=== PATIENT | male | born 1975 | race African-American/Black ===

== ENCOUNTER 2017-01-01 07:40 | Emergency (ER) | payer MEDICAID ==
[~2017-01-01] VITALS: Ht 182.9 cm; Wt 91.0 kg
[2017-01-01] MEDS ORDERED: SODIUM CHLORIDE 0.9% 1,000 ML IV ONE (08:05)
[2017-01-01 08:47] LABS: HEMATOCRIT. 29.6 % (42.0-52.0); MEAN CORPUSCULAR HEMOGLOBIN 29.4 pg (28.0-32.0); MEAN CORPUSCULAR VOLUME 87.2 fL (80.0-94.0); MEAN PLATELET VOLUME 9.4 fl (7.4-10.4); PLATELET 278 x1000/uL (130-400); RED BLOOD CELL COUNT 3.39 mill/uL (4.7-6.1); RED CELL DISTRIBUTION WIDTH 12.8 % (11.6-14.6)
[2017-01-01 08:56] LABS: CARBON DIOXIDE 23 mEq/L (21-32); CHLORIDE 97 mEq/L (98-107)
[2017-01-01 09:22] LABS: PLATELET ESTIMATE NORMAL
[2017-01-01 10:16] LABS: CLARITY URINE CLEAR (CLEAR); COLOR URINE YELLOW (YELLOW); KETONES URINE 3+ (NEGATIVE); LEUKOCYTE ESTERASE URINE NEGATIVE (NEGATIVE); NITRITE URINE NEGATIVE (NEGATIVE); OCCULT BLOOD URINE NEGATIVE (NEGATIVE); PH URINE 5.5 (4.5-8.0); PROTEIN URINE NEGATIVE (NEGATIVE); SPECIFIC GRAVITY URINE 1.043 (1.005-1.030); UROBILINOGEN URINE 0.2 E.U./dL (0.2-1.0)
[2017-01-01 11:33] VITALS: BP 141/88
== END 2017-01-01 11:54 | disposition home or self-care (01) ==
LOC: ER 08:00
DX: E11.65 Type 2 diabetes mellitus with hyperglycemia (principal); I10 Essential (primary) hypertension; Z79.4 Long term (current) use of insulin
CPT/HCPCS: 36415; 80053; 81001; 82962; 85025; 96360; 99284; J7030

== ENCOUNTER 2018-09-28 15:41 | Emergency (ER) | payer MEDICAID | END 2018-09-28 17:23 | disposition left against medical advice (07) | LOC: ER 15:41 | DX: Z53.21 Procedure and treatment not carried out due to patient leaving prior to being seen by health care provider (principal) ==

== ENCOUNTER 2022-05-05 08:38 | Inpatient (IN) | payer MEDICAID ==
[~2022-05-05] VITALS: Ht 182.9 cm; Wt 84.0 kg
[2022-05-05] MEDS ORDERED: LORAZEPAM 2MG/ML CPJ IM STA (09:30)
[2022-05-05] MEDS ORDERED: PIPERACILLIN/TAZ 3.375G PREMIX 50 ML IV ONE (09:30)
[2022-05-05] MEDS ORDERED: OLANZAPINE 10 MG/VIAL IM ONE (09:30)
[2022-05-05] MEDS ORDERED: VANCOMYCIN 1G PREMIX 200 ML IV ONE (09:30)
[2022-05-05 10:53] LABS: CLARITY URINE CLEAR (CLEAR); COLOR URINE YELLOW (YELLOW); KETONES URINE 2+ (NEGATIVE); LEUKOCYTE ESTERASE URINE NEGATIVE (NEGATIVE); NITRITE URINE NEGATIVE (NEGATIVE); OCCULT BLOOD URINE 1+ (NEGATIVE); PH URINE 5.5 (4.5-8.0); PROTEIN URINE TRACE (NEGATIVE); SPECIFIC GRAVITY URINE 1.039 (1.005-1.030); UROBILINOGEN URINE 0.2 E.U./dL (0.2-1.0)
[2022-05-05 11:07] LABS: BASOPHILS % 0.6 % (0.0-2.0); EOSINOPHILS % 3.2 % (0.0-5.0); HEMATOCRIT. 47.7 % (42.0-52.0); HEMOGLOBIN. 16.5 g/dL (14.0-18.0); LYMPHOCYTES % 31.2 % (20.0-50.0); MEAN CORPUSCULAR HEMOGLOBIN 28.7 pg (28.0-32.0); MEAN CORPUSCULAR VOLUME 82.9 fL (80.0-94.0); MEAN PLATELET VOLUME 8.7 fl (7.4-10.4); MONOCYTES % 8.5 % (2.0-8.0); NEUTROPHILS % 56.5 % (40.0-76.0); PLATELET 205 x1000/uL (130-400); RED BLOOD CELL COUNT 5.75 mill/uL (4.7-6.1); RED CELL DISTRIBUTION WIDTH 14.8 % (11.6-14.6)
[2022-05-05 11:41] LABS: CHLORIDE 98 mEq/L (98-107)
[2022-05-05] MEDS ORDERED: SODIUM CHLORIDE 0.9% 1,000 ML IV ONE (12:30)
[2022-05-05] MEDS ORDERED: IPRATROPIUM/ALBUTEROL 0.5-3(2.5)MG/3ML NEB HHN PRN (13:00)
[2022-05-05] MEDS ORDERED: ACETAMINOPHEN 325MG TABLET PO PRN (13:00)
[2022-05-05] MEDS ORDERED: INSULIN LISPRO 100 UNITS/ML SUBCUT NR (13:00)
[2022-05-05] MEDS ORDERED: DIPHENHYDRAMINE 50MG/ML VIAL IV PRN (13:00)
[2022-05-05] MEDS ORDERED: ONDANSETRON HCL 4MG/2ML INJ IV PRN (13:00)
[2022-05-05] MEDS ORDERED: MORPHINE SULFATE 2 MG/ML CPJ (NOT FOR IM USE) IV PRN (13:00)
[2022-05-05] MEDS ORDERED: PIPERACILLIN/TAZ 3.375G PREMIX 50 ML IV NR (13:15)
[2022-05-05] MEDS ORDERED: VANCOMYCIN 1G PREMIX 200 ML IV SCH ×2 (14:00→18:00)
[2022-05-05] MEDS: CLONIDINE 0.1MG TABLET PO PRN (14:11)
[2022-05-05 15:53] VITALS: BP 147/96
[2022-05-05 15:54] VITALS: BP 147/96
[2022-05-05] MEDS ORDERED: HALOPERIDOL LACTATE 5MG/ML VIAL IM PRN (16:15)
[2022-05-05] MEDS ORDERED: NALOXONE HCL 0.4MG/ML VIAL IV PRN (16:30)
[2022-05-05 18:00] VITALS: BP 144/86
[2022-05-05] MEDS: BLOOD SUGAR DIAGNOSTIC STRIP TEST SCH ×2 (18:23→21:18)
[2022-05-05] MEDS ORDERED: DEXTROSE 50% WATER 50ML SYRINGE IV PRN (18:30)
[2022-05-05] MEDS: INSULIN LISPRO 100 UNITS/ML SUBCUT SCH ×2 (18:39→21:24)
[2022-05-05 20:00] VITALS: BP 130/94
[2022-05-05] MEDS: VANCOMYCIN 1G PREMIX 200 ML IV SCH (21:24)
[2022-05-05] MEDS: PIPERACILLIN/TAZOBACTAM 3.375 G in DEXTROSE 5% WATER 50 ML IV SCH (21:24)
[2022-05-05 21:32] LABS: PROTHROMBIN TIME 10.7 sec (9.6-11.0)
[2022-05-05] MEDS ORDERED: PIPERACILLIN/TAZOBACTAM 3.375 G in DEXTROSE 5% WATER 50 ML IV SCH (22:00)
[2022-05-06] VITALS: BP 140/98
[2022-05-06 03:28] LABS: BASOPHILS % 0.8 % (0.0-2.0); EOSINOPHILS % 4.5 % (0.0-5.0); HEMATOCRIT. 48.6 % (42.0-52.0); HEMOGLOBIN. 16.7 g/dL (14.0-18.0); LYMPHOCYTES % 35.4 % (20.0-50.0); MEAN CORPUSCULAR HEMOGLOBIN 28.3 pg (28.0-32.0); MEAN CORPUSCULAR VOLUME 82.7 fL (80.0-94.0); MEAN PLATELET VOLUME 8.5 fl (7.4-10.4); MONOCYTES % 10.7 % (2.0-8.0); NEUTROPHILS % 48.6 % (40.0-76.0); PLATELET 220 x1000/uL (130-400); RED BLOOD CELL COUNT 5.88 mill/uL (4.7-6.1); RED CELL DISTRIBUTION WIDTH 14.9 % (11.6-14.6)
[2022-05-06 04:00] VITALS: BP 112/80
[2022-05-06 04:20] LABS: CHLORIDE 107 mEq/L (98-107)
[2022-05-06] MEDS: PIPERACILLIN/TAZOBACTAM 3.375 G in DEXTROSE 5% WATER 50 ML IV SCH ×3 (04:41→22:46)
[2022-05-06] MEDS: VANCOMYCIN 1G PREMIX 200 ML IV SCH ×3 (05:12→21:05)
[2022-05-06] MEDS: BLOOD SUGAR DIAGNOSTIC STRIP TEST SCH ×4 (05:40→21:02)
[2022-05-06] MEDS: INSULIN LISPRO 100 UNITS/ML SUBCUT SCH ×4 (06:22→21:54)
[2022-05-06 08:00] VITALS: BP 138/97
[2022-05-06 16:00] VITALS: BP_SYST 148; BP_SYST 152; BP_DIAS 109; BP_DIAS 82
[2022-05-06] MEDS: CLONIDINE 0.1MG TABLET PO PRN (18:27)
[2022-05-06 20:00] VITALS: BP 146/103
[2022-05-06] MEDS ORDERED: INSULIN LISPRO 100 UNITS/ML SUBCUT NR (21:45)
[2022-05-07] VITALS: BP 110/60
[2022-05-07 04:00] VITALS: BP 117/82
[2022-05-07] MEDS: PIPERACILLIN/TAZOBACTAM 3.375 G in DEXTROSE 5% WATER 50 ML IV SCH ×3 (05:24→22:00)
[2022-05-07] MEDS: BLOOD SUGAR DIAGNOSTIC STRIP TEST SCH ×4 (05:53→21:00)
[2022-05-07] MEDS: VANCOMYCIN 1G PREMIX 200 ML IV SCH ×3 (06:10→22:53)
[2022-05-07] MEDS: INSULIN LISPRO 100 UNITS/ML SUBCUT SCH ×4 (06:11→21:00)
[2022-05-07 06:28] LABS: BASOPHILS % 0.8 % (0.0-2.0); EOSINOPHILS % 5.1 % (0.0-5.0); HEMATOCRIT. 48.1 % (42.0-52.0); HEMOGLOBIN. 16.5 g/dL (14.0-18.0); LYMPHOCYTES % 30.7 % (20.0-50.0); MEAN CORPUSCULAR HEMOGLOBIN 28.7 pg (28.0-32.0); MEAN CORPUSCULAR VOLUME 83.8 fL (80.0-94.0); MEAN PLATELET VOLUME 8.7 fl (7.4-10.4); MONOCYTES % 10.6 % (2.0-8.0); NEUTROPHILS % 52.8 % (40.0-76.0); PLATELET 222 x1000/uL (130-400); RED BLOOD CELL COUNT 5.74 mill/uL (4.7-6.1); RED CELL DISTRIBUTION WIDTH 14.6 % (11.6-14.6)
[2022-05-07 06:38] LABS: CHLORIDE 105 mEq/L (98-107)
[2022-05-07 08:00] VITALS: BP 132/82
[2022-05-07] MEDS ORDERED: INSULIN LISPRO 100 UNITS/ML SUBCUT NR (09:00)
[2022-05-07] MEDS: SODIUM CHLORIDE 0.9% 1,000 ML IV SCH ×2 (11:35→21:11)
[2022-05-07 12:00] VITALS: BP 147/105
[2022-05-07] MEDS: CLONIDINE 0.1MG TABLET PO PRN (12:42)
[2022-05-07 16:00] VITALS: BP 150/92
[2022-05-07] MEDS ORDERED: BUPIVACAINE HCL/PF 0.5% (5MG/ML) 10ML ONE (16:19)
[2022-05-07] MEDS ORDERED: LIDOCAINE HCL 1% 10 MG/ML 10ML VIAL ONE (16:19)
[2022-05-07] MEDS ORDERED: POLYMYXIN B SULFATE 500000 UNITS/VIAL ONE ×2 (16:19→18:07)
[2022-05-07] MEDS ORDERED: LIDOCAINE HCL 1% 20ML VIAL (Pyxis) INJ ONE (17:10)
[2022-05-07] MEDS ORDERED: PROPOFOL 200MG/20ML VIAL IV ONE (17:10)
[2022-05-07] MEDS ORDERED: FENTANYL CITRATE/PF 50MCG/ML 2ML VIAL ONE (17:11)
[2022-05-07] MEDS ORDERED: MIDAZOLAM HCL 2 MG/2 ML VIAL ONE (17:11)
[2022-05-07] MEDS ORDERED: HYDROMORPHONE HCL/PF 2MG/ML CPJ IV PRN ×2 (18:15)
[2022-05-07] MEDS ORDERED: LABETALOL 5MG/ML SYR 20 MG/4 ML SYRINGE IV PRN ×2 (18:15)
[2022-05-07] MEDS ORDERED: ONDANSETRON HCL 4MG/2ML INJ IV PRN ×2 (18:15)
[2022-05-07] MEDS ORDERED: MEPERIDINE HCL/PF 25MG/ML CPJ IV PRN ×2 (18:15)
[2022-05-08] VITALS (7 sets, daily range): BP systolic 140–170; BP diastolic 98–113
[2022-05-08] MEDS: PIPERACILLIN/TAZOBACTAM 3.375 G in DEXTROSE 5% WATER 50 ML IV SCH ×3 (05:11→21:12)
[2022-05-08] MEDS: BLOOD SUGAR DIAGNOSTIC STRIP TEST SCH ×4 (05:47→21:11)
[2022-05-08] MEDS: VANCOMYCIN 1,000 MG in DEXT 5% WATER 250 ML IV SCH ×3 (05:47→21:21)
[2022-05-08] MEDS: INSULIN LISPRO 100 UNITS/ML SUBCUT SCH ×4 (05:48→21:11)
[2022-05-08] MEDS: CLONIDINE 0.1MG TABLET PO PRN ×2 (08:10→12:14)
[2022-05-08] MEDS: RISPERIDONE 1MG TABLET PO SCH ×2 (12:15→21:12)
[2022-05-08] MEDS: AMLODIPINE 2.5MG TABLET PO SCH ×2 (14:40→21:12)
[2022-05-08 21:42] LABS: BASOPHILS % 0.3 % (0.0-2.0); EOSINOPHILS % 2.3 % (0.0-5.0); HEMATOCRIT. 42.4 % (42.0-52.0); HEMOGLOBIN. 14.6 g/dL (14.0-18.0); LYMPHOCYTES % 18.8 % (20.0-50.0); MEAN CORPUSCULAR HEMOGLOBIN 28.4 pg (28.0-32.0); MEAN CORPUSCULAR VOLUME 82.8 fL (80.0-94.0); MEAN PLATELET VOLUME 9.1 fl (7.4-10.4); MONOCYTES % 12.9 % (2.0-8.0); NEUTROPHILS % 65.7 % (40.0-76.0); PLATELET 200 x1000/uL (130-400); RED BLOOD CELL COUNT 5.12 mill/uL (4.7-6.1); RED CELL DISTRIBUTION WIDTH 14.4 % (11.6-14.6)
[2022-05-08 22:40] LABS: CHLORIDE 99 mEq/L (98-107)
[2022-05-09] VITALS: BP 137/84
[2022-05-09 04:00] VITALS: BP 128/87
[2022-05-09] MEDS: VANCOMYCIN 1,000 MG in DEXT 5% WATER 250 ML IV SCH ×2 (05:24→13:12)
[2022-05-09] MEDS: BLOOD SUGAR DIAGNOSTIC STRIP TEST SCH ×4 (05:55→20:47)
[2022-05-09] MEDS: PIPERACILLIN/TAZOBACTAM 3.375 G in DEXTROSE 5% WATER 50 ML IV SCH ×2 (05:56→15:03)
[2022-05-09] MEDS: INSULIN LISPRO 100 UNITS/ML SUBCUT SCH ×4 (05:57→20:47)
[2022-05-09 08:00] VITALS: BP 130/87
[2022-05-09] MEDS: RISPERIDONE 1MG TABLET PO SCH ×2 (09:15→20:45)
[2022-05-09] MEDS: AMLODIPINE 2.5MG TABLET PO SCH ×2 (09:15→20:46)
[2022-05-09 12:00] VITALS: BP 129/82
[2022-05-09 16:00] VITALS: BP 144/90
[2022-05-09 20:00] VITALS: BP 113/85
[2022-05-09] MEDS: AMOXICILLIN/POTASSIUM CLAVULANATE 875/125MG TAB PO SCH (20:46)
[2022-05-09] MEDS ORDERED: INSULIN GLARGINE 100 UNITS/ML SUBCUT SCH (22:00)
[2022-05-10 00:01] VITALS: BP 141/93
[2022-05-10 04:00] VITALS: BP 137/65
[2022-05-10] MEDS: BLOOD SUGAR DIAGNOSTIC STRIP TEST SCH ×4 (06:03→20:51)
[2022-05-10] MEDS: INSULIN LISPRO 100 UNITS/ML SUBCUT SCH ×4 (06:04→20:56)
[2022-05-10 08:00] VITALS: BP 148/88
[2022-05-10] MEDS: AMOXICILLIN/POTASSIUM CLAVULANATE 875/125MG TAB PO SCH ×2 (08:57→20:51)
[2022-05-10] MEDS: RISPERIDONE 1MG TABLET PO SCH ×2 (08:57→20:51)
[2022-05-10] MEDS: AMLODIPINE 2.5MG TABLET PO SCH ×2 (08:58→20:51)
[2022-05-10 12:00] VITALS: BP 149/90
[2022-05-10] MEDS: INSULIN GLARGINE 100 UNITS/ML SUBCUT SCH ×2 (12:50→20:57)
[2022-05-10] MEDS: ENOXAPARIN 40MG/0.4ML SYR SUBCUT SCH (12:52)
[2022-05-10 16:00] VITALS: BP 187/76
[2022-05-10 20:00] VITALS: BP 146/94
[2022-05-11] VITALS: BP 140/91
[2022-05-11 04:00] VITALS: BP 137/88
[2022-05-11] MEDS: BLOOD SUGAR DIAGNOSTIC STRIP TEST SCH ×4 (06:17→21:00)
[2022-05-11] MEDS: INSULIN LISPRO 100 UNITS/ML SUBCUT SCH ×4 (06:27→21:20)
[2022-05-11 08:00] VITALS: BP 123/83
[2022-05-11] MEDS: RISPERIDONE 1MG TABLET PO SCH ×2 (09:44→21:18)
[2022-05-11] MEDS: AMOXICILLIN/POTASSIUM CLAVULANATE 875/125MG TAB PO SCH ×2 (09:44→21:17)
[2022-05-11] MEDS: AMLODIPINE 2.5MG TABLET PO SCH ×2 (09:44→21:18)
[2022-05-11] MEDS: INSULIN GLARGINE 100 UNITS/ML SUBCUT SCH ×2 (09:46→21:20)
[2022-05-11 12:00] VITALS: BP_SYST 123; BP_SYST 153; BP_DIAS 100; BP_DIAS 83
[2022-05-11] MEDS: ENOXAPARIN 40MG/0.4ML SYR SUBCUT SCH (12:26)
[2022-05-11 16:00] VITALS: BP 158/101
[2022-05-11 20:00] VITALS: BP 131/92
[2022-05-12] VITALS: BP_SYST 142; BP_SYST 155; BP_DIAS 96; BP_DIAS 99
[2022-05-12 04:00] VITALS: BP 142/99
[2022-05-12] MEDS: BLOOD SUGAR DIAGNOSTIC STRIP TEST SCH ×4 (06:02→21:04)
[2022-05-12] MEDS: INSULIN LISPRO 100 UNITS/ML SUBCUT SCH ×4 (06:13→21:06)
[2022-05-12 07:20] LABS: HEMATOCRIT 41.8 % (42.0-52.0); HEMOGLOBIN 14.1 g/dL (14.0-18.0); MEAN CORPUSCULAR HEMOGLOBIN 28.1 pg (28.0-32.0); MEAN CORPUSCULAR VOLUME 83.1 fL (80.0-94.0); PLATELET 247 x1000/uL (130-400); RED BLOOD CELL COUNT 5.03 mill/uL (4.7-6.1); RED CELL DISTRIBUTION WIDTH 14.3 % (11.6-14.6)
[2022-05-12 07:59] VITALS: BP 131/90
[2022-05-12] MEDS: AMLODIPINE 2.5MG TABLET PO SCH ×2 (09:10→21:00)
[2022-05-12] MEDS: RISPERIDONE 1MG TABLET PO SCH ×2 (09:11→21:04)
[2022-05-12] MEDS: AMOXICILLIN/POTASSIUM CLAVULANATE 875/125MG TAB PO SCH ×2 (09:11→21:04)
[2022-05-12] MEDS: INSULIN GLARGINE 100 UNITS/ML SUBCUT SCH ×2 (09:12→21:05)
[2022-05-12 11:40] LABS: CHLORIDE 103 mEq/L (98-107)
[2022-05-12 12:00] VITALS: BP 126/88
[2022-05-12] MEDS: ENOXAPARIN 40MG/0.4ML SYR SUBCUT SCH (13:03)
[2022-05-12] MEDS ORDERED: SERTRALINE HCL 50MG TABLET PO SCH (13:30)
[2022-05-12] MEDS ORDERED: TEMAZEPAM 15MG CAPSULE PO PRN (13:30)
[2022-05-12 16:00] VITALS: BP 144/90
[2022-05-12 20:00] VITALS: BP 107/67
[2022-05-13] VITALS: BP 145/98
[2022-05-13 04:00] VITALS: BP_SYST 140; BP_SYST 167; BP_DIAS 76; BP_DIAS 88
[2022-05-13] MEDS: BLOOD SUGAR DIAGNOSTIC STRIP TEST SCH ×3 (05:42→17:32)
[2022-05-13] MEDS: INSULIN LISPRO 100 UNITS/ML SUBCUT SCH ×3 (05:47→17:18)
[2022-05-13 08:00] VITALS: BP 127/94
[2022-05-13] MEDS: AMLODIPINE 2.5MG TABLET PO SCH (09:15)
[2022-05-13] MEDS: AMOXICILLIN/POTASSIUM CLAVULANATE 875/125MG TAB PO SCH (09:15)
[2022-05-13] MEDS: RISPERIDONE 1MG TABLET PO SCH (09:15)
[2022-05-13] MEDS: INSULIN GLARGINE 100 UNITS/ML SUBCUT SCH (09:16)
[2022-05-13] MEDS: ENOXAPARIN 40MG/0.4ML SYR SUBCUT SCH (13:42)
[2022-05-13 16:38] VITALS: BP 135/90
== END 2022-05-13 17:40 | DRG 305 ==
LOC: ER 08:38 → EDBEDREQTM 11:59 → EDBEDREQ 11:59 → EDBEDREQSVC 11:59 → 7EST 12:41 → EDBEDREQ 12:42 → EDBEDREQTM 12:42
PROVIDERS: ADMIT Internal Medicine; ATTEND Internal Medicine
PROC: 0Y6N0Z0 Detachment at Left Foot, Complete, Open Approach (ICD-10-PCS; principal; 2022-05-07)
DX: E11.69 Type 2 diabetes mellitus with other specified complication (principal); R65.10 Systemic inflammatory response syndrome (SIRS) of non-infectious origin without acute organ dysfunction; E44.1 Mild protein-calorie malnutrition; M86.9 Osteomyelitis, unspecified; E87.1 Hypo-osmolality and hyponatremia; L97.529 Non-pressure chronic ulcer of other part of left foot with unspecified severity; E11.621 Type 2 diabetes mellitus with foot ulcer; E11.65 Type 2 diabetes mellitus with hyperglycemia; F20.9 Schizophrenia, unspecified; F79 Unspecified intellectual disabilities; G47.00 Insomnia, unspecified; I10 Essential (primary) hypertension; J98.11 Atelectasis; H91.90 Unspecified hearing loss, unspecified ear; Z20.822 Contact with and (suspected) exposure to COVID-19; Z79.4 Long term (current) use of insulin; Z79.899 Other long term (current) drug therapy
CPT/HCPCS: 36415; 71045; 73620; 73630; 73718; 80048; 80053; 80202; 81003; 82962; 83036; 83605; 84145; 84484; 85025; 85027; 87426; 88311; 93005; 93970; 97162; 99285; J1630; J1650; J1815; J2060; J2250; J2405; J2543; J2704; J3010; J3370; J3490; J7030; J7060; A4315

== ENCOUNTER 2023-04-25 10:37 | Inpatient (IN) | payer MEDICAID ==
[~2023-04-25] VITALS: Ht 172.7 cm; Wt 85.3 kg
[2023-04-25] MEDS ORDERED: PIPERACILLIN/TAZ 3.375G PREMIX 50 ML IV ONE (11:00)
[2023-04-25] MEDS ORDERED: VANCOMYCIN 1G PREMIX 200 ML IV ONE (11:00)
[2023-04-25 11:54] LABS: BASOPHILS % 0.4 % (0.0-2.0); DIFFERENTIAL COMMENT 0; EOSINOPHILS % 3.3 % (0.0-5.0); HEMATOCRIT. 41.2 % (42.0-52.0); HEMOGLOBIN. 13.5 g/dL (14.0-18.0); LYMPHOCYTES % 23.9 % (20.0-50.0); MEAN CORPUSCULAR HEMOGLOBIN 25.8 pg (28.0-32.0); MEAN CORPUSCULAR HGB CONC 32.9 g/dL (31.0-37.0); MEAN CORPUSCULAR VOLUME 78.6 fL (80.0-94.0); MEAN PLATELET VOLUME 8.6 fl (7.4-10.4); MONOCYTES % 9.4 % (2.0-8.0); PLATELET 282 x1000/uL (130-400); RED BLOOD CELL COUNT 5.24 mill/uL (4.7-6.1); RED CELL DISTRIBUTION WIDTH 15.8 % (11.6-14.6); WHITE BLOOD COUNT 8.7 x1000/uL (4.5-11.0)
[2023-04-25 12:16] LABS: PROTHROMBIN TIME 10.5 sec (9.6-11.0)
[2023-04-25 12:17] LABS: CHLORIDE 102 mEq/L (98-107); INDEX HEMOLYSI 1 (1-3); INDEX ICTERIC 1 (1-4); INDEX LIPEMIC 1 (1-3); POTASSIUM 4.6 mEq/L (3.5-5.1); SODIUM 134 mEq/L (136-145)
[2023-04-25 12:24] LABS: ALANINE AMINOTRANSFERASE 13 IU/L (13-61); ALBUMIN 2.9 g/dL (3.4-5.0); ASPARTATE AMINOTRANSFERASE 6 IU/L (15-37); BILIRUBIN TOTAL 0.5 mg/dL (0.1-1.0); CALCIUM 8.9 mg/dL (8.5-10.1); CARBON DIOXIDE 29 mEq/L (21-32); CREATININE 0.7 mg/dL (0.6-1.3); GLUCOSE 231 mg/dL (70-105); PROTEIN TOTAL 7.8 g/dL (6.0-8.3); UREA NITROGEN BLOOD 14 mg/dL (7-21)
[2023-04-25] MEDS ORDERED: HYDROCODONE/ACETAMINOPHEN 5/325MG TABLET PO PRN (16:30)
[2023-04-25] MEDS ORDERED: CLONIDINE 0.1MG TABLET PO PRN (16:30)
[2023-04-25] MEDS ORDERED: DOCUSATE SODIUM 100MG CAPSULE PO PRN (16:30)
[2023-04-25] MEDS ORDERED: ONDANSETRON HCL 4MG/2ML INJ IV PRN (16:30)
[2023-04-25] MEDS ORDERED: LORAZEPAM 0.5MG TABLET PO PRN (16:30)
[2023-04-25] MEDS ORDERED: IPRATROPIUM/ALBUTEROL 0.5-3(2.5)MG/3ML NEB HHN PRN (16:30)
[2023-04-25] MEDS ORDERED: ACETAMINOPHEN 325MG TABLET PO PRN ×2 (16:30)
[2023-04-25] MEDS ORDERED: DEXTROSE 50% WATER 50ML SYRINGE IV PRN (16:30)
[2023-04-25] MEDS: BLOOD SUGAR DIAGNOSTIC STRIP TEST SCH ×2 (17:42→21:43)
[2023-04-25] MEDS ORDERED: VANCOMYCIN 1G PREMIX 200 ML IV NR (18:00)
[2023-04-25] MEDS: INSULIN LISPRO 100 UNITS/ML SUBCUT SCH ×2 (18:41→22:05)
[2023-04-25 18:55] LABS: CLARITY URINE CLEAR (CLEAR); COLOR URINE YELLOW (YELLOW); GLUCOSE URINE 3+ (NEGATIVE); KETONES URINE NEGATIVE (NEGATIVE); LEUKOCYTE ESTERASE URINE NEGATIVE (NEGATIVE); NITRITE URINE NEGATIVE (NEGATIVE); OCCULT BLOOD URINE 1+ (NEGATIVE); PROTEIN URINE 1+ (NEGATIVE); SPECIFIC GRAVITY URINE 1.019 (1.005-1.030)
[2023-04-25 19:07] LABS: *AMPHETAMINES SCREEN URINE NEGATIVE (NEGATIVE); *BARBITURATES SCREEN URINE NEGATIVE (NEGATIVE); *BENZODIAZEPINES SCREEN URINE NEGATIVE (NEGATIVE); *COCAINE SCREEN URINE NEGATIVE (NEGATIVE); CANNABINOID URINE SCREEN NEGATIVE (NEGATIVE); ECSTASY MDMA SCREEN URINE NEGATIVE (NEGATIVE); OPIATES URINE SCREEN NEGATIVE (NEGATIVE); PHENCYCLIDINE URINE SCREEN NEGATIVE (NEGATIVE)
[2023-04-25 19:11] LABS: BACTERIA URINE 1+; SQUAMOUS EPITHELIAL CELL URINE FEW /lpf (RARE/1+); WBC URINE 0-2 /hpf (0-2)
[2023-04-25 19:12] LABS: YEAST URINE RARE
[2023-04-25 20:40] VITALS: BP 139/92; PULSE 88; RESP 16; TEMP 98.1
[2023-04-25] MEDS: PIPERACILLIN/TAZOBACTAM 3.375 G in DEXTROSE 5% WATER 50 ML IV SCH (21:44)
[2023-04-26] MEDS: VANCOMYCIN 750MG PREMIX 150 ML IV SCH ×3 (01:48→17:12)
[2023-04-26] MEDS: PIPERACILLIN/TAZOBACTAM 3.375 G in DEXTROSE 5% WATER 50 ML IV SCH ×3 (05:53→23:41)
[2023-04-26 07:31] LABS: BASOPHILS % 0.4 % (0.0-2.0); DIFFERENTIAL COMMENT 0; EOSINOPHILS % 4.7 % (0.0-5.0); HEMATOCRIT. 38.2 % (42.0-52.0); HEMOGLOBIN. 12.9 g/dL (14.0-18.0); LYMPHOCYTES % 25.5 % (20.0-50.0); MEAN CORPUSCULAR HEMOGLOBIN 26.1 pg (28.0-32.0); MEAN CORPUSCULAR HGB CONC 33.7 g/dL (31.0-37.0); MEAN CORPUSCULAR VOLUME 77.3 fL (80.0-94.0); MEAN PLATELET VOLUME 8.6 fl (7.4-10.4); MONOCYTES % 8.9 % (2.0-8.0); NEUTROPHILS % 60.5 % (40.0-76.0); PLATELET 341 x1000/uL (130-400); RED BLOOD CELL COUNT 4.94 mill/uL (4.7-6.1); RED CELL DISTRIBUTION WIDTH 15.7 % (11.6-14.6); WHITE BLOOD COUNT 5.6 x1000/uL (4.5-11.0)
[2023-04-26] MEDS: BLOOD SUGAR DIAGNOSTIC STRIP TEST SCH ×4 (07:40→21:01)
[2023-04-26 08:00] VITALS: BP 133/90; PULSE 81; RESP 18; TEMP 97.9
[2023-04-26 08:29] LABS: CHLORIDE 101 mEq/L (98-107); INDEX HEMOLYSI 1 (1-3); INDEX ICTERIC 1 (1-4); INDEX LIPEMIC 1 (1-3); POTASSIUM 4.7 mEq/L (3.5-5.1); SODIUM 132 mEq/L (136-145)
[2023-04-26] MEDS ORDERED: NALOXONE HCL 0.4MG/ML VIAL IV PRN (08:30)
[2023-04-26] MEDS: INSULIN LISPRO 100 UNITS/ML SUBCUT SCH ×4 (08:35→21:52)
[2023-04-26 08:38] LABS: CALCIUM 8.6 mg/dL (8.5-10.1); CARBON DIOXIDE 24 mEq/L (21-32); CREATININE 0.7 mg/dL (0.6-1.3); UREA NITROGEN BLOOD 15 mg/dL (7-21)
[2023-04-26 08:46] LABS: GLUCOSE 422 mg/dL (70-105)
[2023-04-26 12:00] VITALS: BP 155/93; PULSE 88; RESP 19; TEMP 98.2
[2023-04-26] MEDS ORDERED: INSU100V34 SQ (12:15)
[2023-04-26] MEDS ORDERED: GLIP10TA10 PO (12:15)
[2023-04-26] MEDS ORDERED: HALO5TAB2 GT (12:15)
[2023-04-26] MEDS ORDERED: LISI-186 PO (12:17)
[2023-04-26] MEDS ORDERED: AMLO5TAB88 PO (12:17)
[2023-04-26 16:00] VITALS: BP 140/95; PULSE 85; RESP 18; TEMP 97.6
[2023-04-26] MEDS: NICOTINE 14MG PATCH TD SCH (16:32)
[2023-04-26 20:00] VITALS: BP 120/84; PULSE 94; RESP 16; TEMP 97.7
[2023-04-26] MEDS: INSULIN GLARGINE 100 UNITS/ML SUBCUT SCH (21:53)
[2023-04-27] VITALS: BP 103/85; PULSE 93; RESP 16; TEMP 98.1
[2023-04-27] MEDS: VANCOMYCIN 750MG PREMIX 150 ML IV SCH (03:55)
[2023-04-27 04:00] VITALS: BP 122/90; PULSE 93; RESP 18; TEMP 97.6
[2023-04-27] MEDS: BLOOD SUGAR DIAGNOSTIC STRIP TEST SCH ×2 (07:20→12:16)
[2023-04-27 08:00] VITALS: BP 126/78; PULSE 94; RESP 20; TEMP 97.5
[2023-04-27] MEDS: PIPERACILLIN/TAZOBACTAM 3.375 G in DEXTROSE 5% WATER 50 ML IV SCH ×3 (08:22→22:33)
[2023-04-27] MEDS: NICOTINE 14MG PATCH TD SCH (08:23)
[2023-04-27] MEDS: LISINOPRIL 5MG TABLET PO SCH (08:23)
[2023-04-27] MEDS: INSULIN LISPRO 100 UNITS/ML SUBCUT SCH ×3 (08:31→22:37)
[2023-04-27] MEDS ORDERED: LISINOPRIL 2.5MG TABLET PO SCH (09:00)
[2023-04-27] MEDS: INSULIN GLARGINE 100 UNITS/ML SUBCUT SCH ×2 (10:28→22:36)
[2023-04-27 12:00] VITALS: BP 94/63; PULSE 92; RESP 19; TEMP 97.3
[2023-04-27 16:00] VITALS: BP 132/92; PULSE 85; RESP 17; TEMP 97.5
[2023-04-28] VITALS: BP 115/77; PULSE 86; RESP 18; TEMP 96.8
[2023-04-28] MEDS: VANCOMYCIN 1G PREMIX 200 ML IV SCH ×2 (01:31→18:00)
[2023-04-28 04:00] VITALS: BP 130/60; PULSE 80; RESP 19; TEMP 97.9
[2023-04-28] MEDS: PIPERACILLIN/TAZOBACTAM 3.375 G in DEXTROSE 5% WATER 50 ML IV SCH ×3 (06:01→22:11)
[2023-04-28 06:23] LABS: BASOPHILS % 0.2 % (0.0-2.0); DIFFERENTIAL COMMENT 0; EOSINOPHILS % 3.3 % (0.0-5.0); HEMATOCRIT. 41.3 % (42.0-52.0); HEMOGLOBIN. 13.7 g/dL (14.0-18.0); LYMPHOCYTES % 34.6 % (20.0-50.0); MEAN CORPUSCULAR HEMOGLOBIN 25.6 pg (28.0-32.0); MEAN CORPUSCULAR HGB CONC 33.1 g/dL (31.0-37.0); MEAN CORPUSCULAR VOLUME 77.2 fL (80.0-94.0); MEAN PLATELET VOLUME 8.6 fl (7.4-10.4); MONOCYTES % 8.3 % (2.0-8.0); NEUTROPHILS % 53.6 % (40.0-76.0); PLATELET 401 x1000/uL (130-400); RED BLOOD CELL COUNT 5.34 mill/uL (4.7-6.1); RED CELL DISTRIBUTION WIDTH 15.9 % (11.6-14.6)
[2023-04-28 08:00] VITALS: BP 148/106; PULSE 87; RESP 20; TEMP 99.1
[2023-04-28 08:42] LABS: CALCIUM 8.5 mg/dL (8.5-10.1); CHLORIDE 107 mEq/L (98-107); INDEX HEMOLYSI 1 (1-3); INDEX ICTERIC 1 (1-4); INDEX LIPEMIC 1 (1-3); POTASSIUM 4.1 mEq/L (3.5-5.1); SODIUM 138 mEq/L (136-145)
[2023-04-28 08:47] LABS: CARBON DIOXIDE 25 mEq/L (21-32); CREATININE 0.9 mg/dL (0.6-1.3); GLUCOSE 173 mg/dL (70-105); UREA NITROGEN BLOOD 16 mg/dL (7-21)
[2023-04-28] MEDS: NICOTINE 14MG PATCH TD SCH (09:07)
[2023-04-28] MEDS: LISINOPRIL 5MG TABLET PO SCH (09:08)
[2023-04-28] MEDS: HALOPERIDOL 5MG TABLET PO SCH ×2 (09:49→22:11)
[2023-04-28] MEDS: BENZTROPINE MESYLATE 1MG TABLET PO SCH ×2 (09:49→22:12)
[2023-04-28] MEDS: INSULIN GLARGINE 100 UNITS/ML SUBCUT SCH ×2 (09:59→22:13)
[2023-04-28 12:00] VITALS: BP 140/99; PULSE 80; RESP 19; TEMP 98.4
[2023-04-28] MEDS: BLOOD SUGAR DIAGNOSTIC STRIP TEST SCH ×3 (12:20→21:00)
[2023-04-28] MEDS: INSULIN LISPRO 100 UNITS/ML SUBCUT SCH ×3 (12:50→21:00)
[2023-04-28 20:00] VITALS: BP 141/87; PULSE 86; RESP 20; TEMP 98.1
[2023-04-29] VITALS: BP 134/84; PULSE 80; RESP 20; TEMP 98.2
[2023-04-29 04:00] VITALS: BP 151/95; PULSE 78; RESP 20; TEMP 97.2
[2023-04-29] MEDS: PIPERACILLIN/TAZOBACTAM 3.375 G in DEXTROSE 5% WATER 50 ML IV SCH ×2 (06:51→21:57)
[2023-04-29 06:54] LABS: BASOPHILS % 0.6 % (0.0-2.0); DIFFERENTIAL COMMENT 0; EOSINOPHILS % 4.6 % (0.0-5.0); HEMATOCRIT. 38.3 % (42.0-52.0); HEMOGLOBIN. 12.9 g/dL (14.0-18.0); LYMPHOCYTES % 35.9 % (20.0-50.0); MEAN CORPUSCULAR HEMOGLOBIN 25.7 pg (28.0-32.0); MEAN CORPUSCULAR HGB CONC 33.6 g/dL (31.0-37.0); MEAN CORPUSCULAR VOLUME 76.4 fL (80.0-94.0); MEAN PLATELET VOLUME 8.2 fl (7.4-10.4); MONOCYTES % 9.4 % (2.0-8.0); NEUTROPHILS % 49.5 % (40.0-76.0); PLATELET 389 x1000/uL (130-400); RED BLOOD CELL COUNT 5.01 mill/uL (4.7-6.1); RED CELL DISTRIBUTION WIDTH 15.7 % (11.6-14.6); WHITE BLOOD COUNT 5.6 x1000/uL (4.5-11.0)
[2023-04-29] MEDS: INSULIN LISPRO 100 UNITS/ML SUBCUT SCH ×4 (07:50→21:43)
[2023-04-29 08:00] VITALS: BP 147/96; PULSE 80; RESP 18; TEMP 97.5
[2023-04-29] MEDS: BLOOD SUGAR DIAGNOSTIC STRIP TEST SCH ×4 (08:14→21:18)
[2023-04-29 08:39] LABS: CHLORIDE 109 mEq/L (98-107); INDEX HEMOLYSI 1 (1-3); INDEX ICTERIC 1 (1-4); INDEX LIPEMIC 1 (1-3); SODIUM 138 mEq/L (136-145)
[2023-04-29 08:46] LABS: CALCIUM 8.4 mg/dL (8.5-10.1); CARBON DIOXIDE 26 mEq/L (21-32); CREATININE 0.8 mg/dL (0.6-1.3); GLUCOSE 163 mg/dL (70-105); UREA NITROGEN BLOOD 17 mg/dL (7-21)
[2023-04-29] MEDS: NICOTINE 14MG PATCH TD SCH (09:00)
[2023-04-29] MEDS: BENZTROPINE MESYLATE 1MG TABLET PO SCH ×2 (09:22→21:36)
[2023-04-29] MEDS: HALOPERIDOL 5MG TABLET PO SCH ×2 (09:22→21:35)
[2023-04-29] MEDS: LISINOPRIL 5MG TABLET PO SCH (09:22)
[2023-04-29] MEDS: INSULIN GLARGINE 100 UNITS/ML SUBCUT SCH ×2 (10:00→22:05)
[2023-04-29 12:00] VITALS: BP 161/105; PULSE 84; RESP 19; TEMP 97.7
[2023-04-29] MEDS: VANCOMYCIN 1G PREMIX 200 ML IV SCH (12:00)
[2023-04-29 16:00] VITALS: BP 117/92; PULSE 97; RESP 19; TEMP 97.5
[2023-04-29 20:00] VITALS: BP 124/80; PULSE 85; RESP 20; TEMP 96.6
[2023-04-30] VITALS: BP 133/97; PULSE 92; RESP 20; TEMP 96.5
[2023-04-30] MEDS: PIPERACILLIN/TAZOBACTAM 3.375 G in DEXTROSE 5% WATER 50 ML IV SCH (05:34)
[2023-04-30] MEDS: VANCOMYCIN 1G PREMIX 200 ML IV SCH (05:34)
[2023-04-30] MEDS: BLOOD SUGAR DIAGNOSTIC STRIP TEST SCH ×4 (07:09→21:00)
[2023-04-30] MEDS: INSULIN LISPRO 100 UNITS/ML SUBCUT SCH ×4 (07:21→21:54)
[2023-04-30 08:00] VITALS: BP 131/90; PULSE 85; RESP 19; TEMP 97.7
[2023-04-30] MEDS: BENZTROPINE MESYLATE 1MG TABLET PO SCH ×2 (08:43→21:51)
[2023-04-30] MEDS: LISINOPRIL 5MG TABLET PO SCH (08:43)
[2023-04-30] MEDS: HALOPERIDOL 5MG TABLET PO SCH ×2 (08:43→21:50)
[2023-04-30] MEDS: NICOTINE 14MG PATCH TD SCH (08:44)
[2023-04-30] MEDS: INSULIN GLARGINE 100 UNITS/ML SUBCUT SCH ×2 (10:00→21:54)
[2023-04-30 12:00] VITALS: BP 143/90; PULSE 87; RESP 18; TEMP 97.5
[2023-04-30] MEDS ORDERED: BENZ1TAB78 PO (13:16)
[2023-04-30] MEDS ORDERED: INSU100I28 SQ (13:16)
[2023-04-30] MEDS ORDERED: NICO-786 TP (13:16)
[2023-04-30 16:00] VITALS: BP 138/92; PULSE 85; RESP 19; TEMP 97.9
[2023-04-30 20:00] VITALS: BP 144/96; PULSE 89; RESP 18; TEMP 97.1
[2023-05-01] VITALS: BP 138/93; PULSE 88; RESP 18; TEMP 96.5
[2023-05-01] MEDS: BLOOD SUGAR DIAGNOSTIC STRIP TEST SCH ×2 (06:46→12:20)
[2023-05-01 08:00] VITALS: BP 149/99; PULSE 85; RESP 18; TEMP 97.7
[2023-05-01] MEDS: BENZTROPINE MESYLATE 1MG TABLET PO SCH (08:32)
[2023-05-01] MEDS: HALOPERIDOL 5MG TABLET PO SCH (08:32)
[2023-05-01] MEDS: NICOTINE 14MG PATCH TD SCH (08:32)
[2023-05-01] MEDS: LISINOPRIL 5MG TABLET PO SCH (08:32)
[2023-05-01] MEDS: INSULIN LISPRO 100 UNITS/ML SUBCUT SCH ×2 (09:17→12:50)
[2023-05-01] MEDS: INSULIN GLARGINE 100 UNITS/ML SUBCUT SCH (10:15)
[2023-05-01 12:00] VITALS: BP 114/80; PULSE 82; RESP 19; TEMP 97.5
[2023-05-01 14:20] VITALS: BP 114/86; PULSE 82; TEMP 97.3; O2SAT 97
== END 2023-05-01 15:50 | DRG 351 ==
LOC: ER 10:45 → 6EST 12:54 → EDBEDREQTM 12:55 → EDBEDREQ 12:55 → ENRESERV 14:18
PROVIDERS: ADMIT Internal Medicine; ATTEND Internal Medicine
DX: S81.012A Laceration without foreign body, left knee, initial encounter (principal); D50.9 Iron deficiency anemia, unspecified; E11.65 Type 2 diabetes mellitus with hyperglycemia; F20.9 Schizophrenia, unspecified; D72.821 Monocytosis (symptomatic); I10 Essential (primary) hypertension; R31.9 Hematuria, unspecified; R80.9 Proteinuria, unspecified; R47.9 Unspecified speech disturbances; X58.XXXA Exposure to other specified factors, initial encounter; R81 Glycosuria; Z79.4 Long term (current) use of insulin; Z89.512 Acquired absence of left leg below knee; Z72.0 Tobacco use; Y93.89 Activity, other specified; Y92.89 Other specified places as the place of occurrence of the external cause; Y99.8 Other external cause status
CPT/HCPCS: 36415; 71045; 80048; 80053; 80202; 80305; 81003; 82962; 83036; 83605; 84145; 85025; 97116; 97162; 97530; 99285; J1630; J1815; J2543; J3370; J7060